=== PATIENT | female | born 1985 | race Caucasian/White ===

== ENCOUNTER 2020-03-16 08:50 | Emergency (ER) | payer OTHER, SELFPAY ==
[2020-03-16 08:51] VITALS: BP 118/59; PULSE 90; RESP 18; TEMP 37; O2SAT 97; BMI 29.7
[2020-03-16 10:43] VITALS: BP 123/73; PULSE 80; O2SAT 97
--- NOTE | 2020-03-16 11:01 | HMH.EDSKAF ---
ED Disposition Clinical Impression: Abscess of skin or subcutaneous tissue Qualifiers: Site of cutaneous abscess: buttock Qualified Code(s): L02.31 - Cutaneous abscess of buttock Disposition: Home, Self-Care Condition on Discharge: Fair Instructions: DI for Skin Abscess Additional Instructions: Have incised the abscess on your buttock and a sample has been collected and sent to the lab for culture please follow-up on this culture please continue to take the antibiotic already prescribed you may have to change the antibiotic based on the culture Referrals: Kasi iSngh [Primary Care Provider] - Forms: Work/School Release Time of Disposition: 11:17 - Critical Care Critical Care Time: No Attestation: On 03/16/20, the high probability of a clinically significant, sudden or life threatening deterioration of the following system(s) required my full and direct attention, intervention and personal management. The time I documented below is in addition to time spent performing reported procedures but includes the following listed in this critical care notation. Medical Decision Making - Medical Records Medical records reviewed: Yes: I reviewed the patient's medical records. MR Comment: This is a 35-year-old female here with a complaint of upper right butt cheek abscess with drainage since Friday. Been to her PCP who has prescribed her Bactrim but they have not done anything else apparently they have not even looked at it so they were concerned about it; denies any other medical problems, denies mosquito bites, denies picking the area, or any other trauma to the area. The area was cleaned with Betadine 10 cc of lidocaine was injected and using 11 blade the abscess was incised and drained 2 to 3 mL of pus was obtained sample has been collected and sent for culture see has been applied patient has been advised to continue take the antibiotic and check on the wound culture and change antibiotics as needed; will take her off from work today - Ryan Inquiry Pt receiving controlled substance: No Vital Signs: 03/16/20 08:51 03/16/20 10:43 Temperature 98.6 F Temperature Source Oral Pulse Rate [Left Radial] 90 80 Respiratory Rate 18 Blood Pressure [Right Arm] 118/59 L 123/73 Blood Pressure Mean [Right Arm] 78 89 Blood Pressure Source [Right Arm] Automatic Cuff Automatic Cuff Blood Pressure Position [Right Arm] Sitting Sitting 02 Sat by Pulse Oximetry 97 97 Oxygen Delivery Method Room Air Room Air Orders (Tests/Meds): ORDERS Category Date Time Status Wound Culture and Gram Stain Stat Micro 03/16/20 10:59 Ordered Skin/Abscess/FB HPI - General Chief complaint: Skin/Abscess/Foreign Body Stated complaint: abcess on bottom of back Time Seen by Provider: 03/16/20 10:30 Mode of Arrival: Ambulatory Source of Information: Patient, Parent(s) Limitations: No Limitations Description of Symptoms (Recalled from ER Triage Doc. by RN): c/o upper right butt cheek abscess with drainage since Friday - History of Present Illness HPI narrative: This is a 35-year-old female here with a complaint of upper right butt cheek abscess with drainage since Friday. Been to her PCP who has prescribed her Bactrim but they have not done anything else apparently they have not even looked at it so they were concerned about it; denies any other medical problems, denies mosquito bites, denies picking the area, or any other trauma to the area MD complaint: abscess/boil Onset (ago): day(s) Tetanus up to date: unsure Location: buttocks Severity: moderate Severity scale (1-10): 4 Quality: sharp Consistency: constant Relieving factors: none Exacerbating factors: none Associated symptoms: denies other symptoms Treatments prior to arrival: antibiotic - Related Data Home Medications Medication Instructions Recorded Confirmed Ergocalciferol (Vitamin D2) 1 tab PO DAILY 03/16/20 03/16/20 [Drisdol 50,000 units (1.25
[2020-03-16 11:33] VITALS: BP 132/74; PULSE 74; RESP 16; TEMP 36.6; O2SAT 98
--- NOTE | 2020-03-18 08:55 | PC.NURSE ---
spoke with pt this time, verified that pt is on Bactrim (culture shows abscess is sensitive to bactrim), pt states to day is her last dose of antibiotic. Pt states area is healing and is so much better . Verified pt family MD is Dr. Singh, stated that I would contact their office to fax over culture results, notified pt to get close follow up with her primary MD. Pt verbalized understanding.
--- NOTE | 2020-03-18 09:00 | PC.NURSE ---
Spoke with Dr. Singh office staff at this time, verified that this pt is a pt of his. Received fax number in order to fax over culture results on pt.
== END 2020-03-16 11:36 | disposition home or self-care (01) ==
PROVIDERS: Emergency Provider Emergency Medicine; PCP Pediatrics
DX: L02.31 Cutaneous abscess of buttock (principal); I10 Essential (primary) hypertension; Z23 Encounter for immunization; Z79.899 Other long term (current) drug therapy
CPT/HCPCS: 10060; 87070; 87077; 87186; 87205; 90471; 90715; 99283

== ENCOUNTER 2022-10-25 11:57 | Emergency (ER) | payer SELFPAY ==
[2022-10-25 12:20] VITALS: BP 161/89; PULSE 58; RESP 20; TEMP 36.7; O2SAT 100; BMI 29.1
--- NOTE | 2022-10-25 12:56 | EXP.UTC ---
Discharge Plan Disposition Patient Disposition: Home, Self-Care Condition: Good Prescriptions Prescriptions: New benzonatate 100 mg capsule 100 mg PO TID PRN (Reason: cough) Qty: 30 0RF amoxicillin-pot clavulanate 875-125 mg Tablet 1 tab PO Q12H Qty: 20 0RF methylprednisolone [Medrol (Tk)] 4 mg tablets,dose pack See Rx Instructions .Route .COMPLEX 6 Days Qty: 21 0RF Rx Instructions: taper pack; No Action lisinopril 20 MG tablet 20 mg PO DAILY sertraline 100 MG tablet 100 mg PO DAILY atenolol 25 MG tablet 25 mg PO DAILY ergocalciferol (vitamin D2) 50,000 UNIT capsule 1 tab PO DAILY Patient Comments: TAKE 1 CAPSULE BY MOUTH 1 TIME A WEEK Referrals Follow up/Referrals: Provider,Referral, MD [Primary Care Provider] - See instructions Activity Restrictions/Add. Instructions Additional Instructions/Restrictions: Monitor Temp, Over the counter Motrin or Tylenol as directed/as needed Tylenol every 4 hours and Motrin every 6 hours (as long as your family doctor has told you that you can take it) for fever or pain. and straight to ER if unable to lower temp less than 101.0 after medication given *Warm salt water gargles may help to soothe the throat *Throat Lozenges? *Warm fluids like tea with honey may help to soothe the throat? *Sleep elevated *Humidifier/Vaporizer Follow up IMMEDIATELY for new or worsening symptoms or no Noticeable improvement over the next 48-72 hours. 911 for difficulty breathing or swallowing Clinical Impressions Clinical Impression: Sinusitis Qualifiers: Sinusitis location: unspecified location Chronicity: unspecified Qualified Code(s): J32.9 - Chronic sinusitis, unspecified Instructions Patient Instructions: DI for Sinusitis, Sinusitis Discharge ED Provider: Rachael Walsh [facility] [place] General Stated complaint: Lt ear pain, cough, drainage, LOVE Mode of Arrival: Ambulatory Source of Information: Patient Limitations: No Limitations Time Seen by Provider: 10/25/22 12:57 Description of Symptoms (Recalled from Triage Doc. by RN): PATIENT C/O COUGH, SINUS DRAINAGE, LEFT EAR PAIN, AND HEADACHE X 2 WEEKS HEENT Symptoms (Recalled from RN notes): Yes Resp Symptoms (Recalled from RN notes): Yes Skin Symptoms (Recalled from RN notes): No MS Symptoms (Recalled from RN notes): No Functional Status (Recalled from RN notes): WNL History of Present Illness Provider Complaint: Patient states that she hasnt felt well for about 2 weeks States that she has been having sinus pain and pressure, cough, pain and pressure in her ears and sinus headache State that today her ear was hurting worse so she came in Related Data Home Medications Medication Instructions Recorded Confirmed atenolol 25 mg tablet 25 mg PO DAILY Hypertension 03/16/20 03/16/20 ergocalciferol (vitamin D2) 1,250 1 tab PO DAILY Supplement 03/16/20 03/16/20 mcg (50,000 unit) capsule lisinopril 20 mg tablet 20 mg PO DAILY Hypertension 03/16/20 03/16/20 sertraline 100 mg tablet 100 mg PO DAILY mood 03/16/20 03/16/20 Previous Rx's Medication Instructions Recorded amoxicillin 875 mg-potassium 1 tab PO Q12H #20 tabs 10/25/22 clavulanate 125 mg tablet benzonatate 100 mg capsule 100 mg PO TID PRN cough #30 caps 10/25/22 methylprednisolone 4 mg tablets in See Rx Instructions .Route 10/25/22 a dose pack (Medrol (Tk)) .COMPLEX 6 days #21 tabs Allergies Allergy/AdvReac Type Severity Reaction Status Date / Time No Known Allergies Allergy Unverified 02/11/17 14:14 Worker's Comp Is this a Worker's Comp case?: No [facility] Disclaimer: The information contained in this section may have been updated after the patient was seen, as this information can be updated by other users. Social History Smoking Status: Unknown if ever smoked alcohol intake: never current occupational status: employed Travel in the last 8 weeks: None
[2022-10-25 13:03] VITALS: BP 161/89; PULSE 58; RESP 20; TEMP 36.7; O2SAT 100
== END 2022-10-25 13:05 | disposition home or self-care (01) ==
PROVIDERS: Emergency Provider Nurse Practitioner
DX: J01.90 Acute sinusitis, unspecified (principal)
CPT/HCPCS: 99204; 99212; G0463